=== PATIENT | female | born 1980 | race African-American/Black ===

== ENCOUNTER → 2019-11-15 | Outpatient (REF) | payer OTHER ==
[2019-11-15 13:05] LABS: BASO # 0.1 10^3/uL (0.0-0.2); EOS # 0.3 10^3/uL (0.0-0.5); EOS % 4.4 % (0.0-3.0); HEMATOCRIT 36.6 % (36.0-47.0); HEMOGLOBIN 10.7 g/dl (12.0-15.5); LYMPH # 1.7 10^3/uL (1.5-5.0); LYMPH % 29.2 % (24.0-44.0); MEAN CORPUSCULAR HEMOGLOBIN 21.9 pg (27.0-33.0); MEAN CORPUSCULAR HGB CONC 29.2 g/dl (32.0-36.5); MONO # 0.3 10^3/uL (0.0-0.8); MONO % 5.4 % (0.0-5.0); NEUTROPHILS # 3.5 10^3/uL (1.5-8.5); NEUTROPHILS % 59.8 % (36.0-66.0); PLATELET COUNT, AUTOMATED 324 10^3/uL (150-450); RED BLOOD COUNT 4.88 10^6/uL (4.00-5.40); WHITE BLOOD COUNT 5.9 10^3/uL (4.0-10.0)
[2019-11-15 13:18] LABS: APPEARANCE, URINE CLEAR (CLEAR); BACTERIA, URINE AUTO NEGATIVE (NEGATIVE); BILIRUBIN, URINE AUTO NEGATIVE (NEGATIVE); BLOOD, URINE BLOOD 1+ (NEGATIVE); COLOR, URINE YELLOW (YELLOW); GLUCOSE, URINE (UA) AUTO NEGATIVE (NEGATIVE); KETONE, URINE AUTO NEGATIVE (NEGATIVE); LEUKOCYTE ESTERASE, URINE AUTO NEGATIVE (NEGATIVE); MUCUS, URINE SMALL (NEGATIVE); NITRITE, URINE AUTO NEGATIVE (NEGATIVE); PROTEIN, URINE AUTO NEGATIVE (NEGATIVE); RBC, URINE AUTO 5 /HPF (0-3); SPECIFIC GRAVITY URINE AUTO 1.026 (1.002-1.035); SQUAMOUS EPITHELIAL CELL UR AU 1 /HPF (0-6); UROBILINOGEN, URINE AUTO 0.2 mg/dL (0.0-2.0); WBC, URINE AUTO 1 /HPF (0-3)
[2019-11-15 13:41] LABS: TOTAL PROTEIN,RANDOM URINE 15.3 MG/DL (0.0-12.0)
[2019-11-15 13:43] LABS: ERYTHROCYTE SEDIMENTATION RATE 35 mm/hr (0-20)
[2019-11-15 14:40] LABS: ALBUMIN 3.9 GM/DL (3.2-5.2); ALT/SGPT 14 U/L (12-78); BILIRUBIN,TOTAL 0.3 MG/DL (0.2-1.0); BLOOD UREA NITROGEN 11 MG/DL (7-18); C REACTIVE PROTEIN QUANTITATIV 0.57 MG/DL (0.00-0.30); CALCIUM LEVEL 9.1 MG/DL (8.5-10.1); CARBON DIOXIDE LEVEL 28 MEQ/L (21-32); CHLORIDE LEVEL 108 MEQ/L (98-107); COMPLEMENT C3 130 MG/DL (90-180); COMPLEMENT C4 22 MG/DL (10-40); CREATININE FOR GFR 0.64 MG/DL (0.55-1.30); GLOMERULAR FILTRATION RATE > 60.0 (>58); GLUCOSE, FASTING 82 MG/DL (70-100); HEPATITIS B SURFACE ANTIBODY NEGATIVE (POSITIVE); HEPATITIS C VIRUS ABY INDEX < 0.0 INDEX (<0.8); POTASSIUM SERUM 3.7 MEQ/L (3.5-5.1); RHEUMATOID FACTOR QUANT < 10.0 IU/ML (<15.0); SODIUM LEVEL 140 MEQ/L (136-145); TOTAL PROTEIN 7.9 GM/DL (6.4-8.2)
[2019-11-18 08:31] LABS: ANGIOTENSIN 1 CONVERTING ENZYM 36 U/L (14-82); ANTI DS-DNA AB Negative (Negative); BETA-2 GLYCOPROTEIN I ABY IGA <9 (0-25); BETA-2 GLYCOPROTEIN I ABY IGG <9 (0-20); BETA-2 GLYCOPROTEIN I ABY IGM <9 (0-32); CARDIOLIPIN IGA ANTIBODY <9 APL U/mL (0-11); CARDIOLIPIN IGG ANTIBODY <9 GPL U/mL (0-14); CARDIOLIPIN IGM ANTIBODY <9 MPL U/mL (0-12); CYCLIC CITRULLINATED PEPTIDE 8 units (0-19); HEPATITIS B CORE ANTIBODY IGG Negative (Negative); RNP ANTIBODY < 0.2 AI (0.0-0.9); SMITHS ANTIBODY < 0.2 AI (0.0-0.9); SSA SJOGRENS A <0.2 AI (0.0-0.9); SSB SJOGRENS B <0.2 AI (0.0-0.9)
[2019-11-21 11:27] LABS: DRVV SCREEN 36.6 SEC
[2019-11-21 11:33] LABS: PTT LUPUS TYPE ANTICOAG SCREEN 0.9 (0-1.2)
== END ==
LOC: M SFHCRHEU 11:17
PROVIDERS: ATTEND Internal Medicine
DX: R76.8 Other specified abnormal immunological findings in serum (principal)
CPT/HCPCS: 80053; 81001; 82164; 82570; 84156; 85025; 85652; 85730; 86140; 86146; 86147; 86160; 86200; 86225; 86235; 86255; 86431; 86704; 86706; 86803; G0463